=== PATIENT | male | born 1955 | race American Indian/Alaskan Native ===

== ENCOUNTER 2017-12-13 22:46 | Emergency (ER) | payer OTHER ==
[~2017-12-13] VITALS: Ht 167.6 cm; Wt 68.2 kg
[2017-12-13 22:51] VITALS: BP 154/99
== END 2017-12-14 02:00 | disposition left against medical advice (07) ==
LOC: EMS 22:47
DX: M25.561 Pain in right knee (principal); F17.210 Nicotine dependence, cigarettes, uncomplicated; F19.90 Other psychoactive substance use, unspecified, uncomplicated; Z53.21 Procedure and treatment not carried out due to patient leaving prior to being seen by health care provider

== ENCOUNTER 2022-07-11 07:11 | Inpatient (IN) | payer OTHER ==
[~2022-07-11] VITALS: Ht 167.6 cm; Wt 75.0 kg
[2022-07-11 08:04] LABS: EOSINOPHILS % (AUTO) 6.4 % (1.0-6.0); HEMATOCRIT 46.8 % (41-53); HEMOGLOBIN 15.1 g/dL (13.5-17.5); LYMPHOCYTES % (AUTO) 16.4 % (22.0-44.0); MEAN CORPUSCULAR HEMOGLOBIN 31.7 pg (26.0-34.0); MEAN CORPUSCULAR HGB CONC 32.2 G/dL (31.0-37.0); MEAN CORPUSCULAR VOLUME 98 fL (80-100); MONOCYTES # (AUTO) 0.4 K/uL (0.1-1.0); MONOCYTES % (AUTO) 5.8 % (2.0-9.0); NEUTROPHILS # (AUTO) 4.3 K/uL (1.8-7.7); NEUTROPHILS % (AUTO) 70.4 % (40.0-70.0); PLATELET COUNT (AUTO) 171 K/uL (150-450); RED BLOOD CELL COUNT(AUTO) 4.76 MIL/uL (4.50-5.90); RED CELL DISTRIBUTION WIDTH 14.7 % (11.5-14.5)
[2022-07-11 08:24] LABS: CALCIUM, TOTAL 8.6 mg/dL (8.8-10.5); CREATININE 1.33 mg/dL (0.60-1.30); POTASSIUM 4.5 mmol/L (3.5-5.1)
[2022-07-11] MEDS ORDERED: ASPIRIN 81 MG CHEWABLE TABLET PO ONE (08:30)
[2022-07-11 08:50] LABS: ALBUMIN 3.7 g/dL (3.4-5.0); BILIRUBIN,TOTAL 0.8 mg/dL (0.1-1.0); TOTAL PROTEIN, SERUM 7.1 g/dL (6.4-8.2)
[2022-07-11] MEDS ORDERED: CIPROFLOXACIN HCL 0.3% 2.5 ML OPHTHALMIC SOLUTION OU ONE (09:00)
[2022-07-11 09:02] LABS: COVID AG,FIA SOURCE NASOPHARYNGEAL
[2022-07-11] MEDS ORDERED: ONDANSETRON HCL 4 MG/2 ML VIAL IVP PRN ×2 (09:15→16:00)
[2022-07-11] MEDS ORDERED: ACETAMINOPHEN 325 MG TABLET PO PRN ×2 (09:15→16:00)
[2022-07-11] MEDS ORDERED: 0.9% SODIUM CHLORIDE 10 ML SYRINGE IVP PRN (09:15)
[2022-07-11] MEDS ORDERED: FUROSEMIDE 20 MG/2 ML VIAL IVP ONE (09:15)
[2022-07-11 09:18] LABS: APPEARANCE,URINE CLEAR (CLEAR); BILIRUBIN,URINE NEGATIVE (NEGATIVE); GLUCOSE, URINE (UA) NEGATIVE (NEGATIVE); KETONES,URINE NEGATIVE (NEGATIVE); LEUKOCYTE ESTERASE ,URINE NEGATIVE (NEGATIVE); NITRATE,URINE NEGATIVE (NEGATIVE); OCCULT BLOOD,URINE NEGATIVE (NEGATIVE); PH,URINE 5.5 (5.0-8.0); PROTEIN,URINE 30-70 mg/dL (NEGATIVE); SPECIFIC GRAVITIY, URINE 1.021 (1.003-1.030); UROBILINOGEN,URINE <=1.0 mg/dL (<=1.0)
[2022-07-11 09:49] LABS: INFLUENZA TYPE A NEGATIVE FOR TYPE A (NEGATIVE); INFLUENZA TYPE B NEGATIVE FOR TYPE B (NEGATIVE)
[2022-07-11 14:33] LABS: AMPHET/METH SCREEN,URINE POSITIVE (NEGATIVE); BARBITURATE SCREEN, URINE NEGATIVE (NEGATIVE); BENZODIAZEPINES SCREEN,URINE NEGATIVE (NEGATIVE); CANNABINOID SCREEN,URINE NEGATIVE (NEGATIVE); COCAINE SCREEN,URINE NEGATIVE (NEGATIVE); METHADONE SCREEN, URINE NEGATIVE (NEGATIVE); OPIATE SCREEN,URINE NEGATIVE (NEGATIVE)
[2022-07-11 14:37] LABS: PHENCYCLIDINE SCREEN,URINE NEGATIVE (NEGATIVE)
[2022-07-11] MEDS ORDERED: ZOLPIDEM TARTRATE 5 MG TABLET PO PRN (16:00)
[2022-07-11] MEDS ORDERED: HYDROCODONE/ACETAMINOPHEN 5-325 MG TABLET PO PRN (16:00)
[2022-07-11] MEDS ORDERED: MORPHINE SULFATE 2 MG/ML SYRINGE IVP PRN (16:00)
[2022-07-11] MEDS ORDERED: BISACODYL 10 MG RECTAL RECTAL SUPPOSITORY PR PRN (16:00)
[2022-07-11] MEDS ORDERED: MAGNESIUM HYDROXIDE SUSPENSION 30 ML UDCUP PO PRN (16:00)
[2022-07-11] MEDS: HEPARIN SODIUM,PORCINE 5,000 UNITS/ML VIAL SQ SCH ×2 (16:08→23:48)
[2022-07-11] MEDS: DOCUSATE SODIUM 100 MG CAPSULE PO SCH (21:01)
[2022-07-11] MEDS: CARVEDILOL 3.125 MG TABLET PO SCH (21:02)
[2022-07-11] MEDS: FUROSEMIDE 20 MG/2 ML VIAL IVP SCH (21:09)
[2022-07-12 05:47] LABS: BASOPHILS % (AUTO) 0.7 % (0.0-2.0); EOSINOPHILS % (AUTO) 5.9 % (1.0-6.0); HEMATOCRIT 46.6 % (41-53); HEMOGLOBIN 15.3 g/dL (13.5-17.5); LYMPHOCYTES # (AUTO) 1.1 K/uL (1.0-4.8); LYMPHOCYTES % (AUTO) 16.7 % (22.0-44.0); MEAN CORPUSCULAR HEMOGLOBIN 31.5 pg (26.0-34.0); MEAN CORPUSCULAR HGB CONC 32.8 G/dL (31.0-37.0); MEAN CORPUSCULAR VOLUME 96 fL (80-100); MONOCYTES # (AUTO) 0.5 K/uL (0.1-1.0); MONOCYTES % (AUTO) 8.3 % (2.0-9.0); NEUTROPHILS # (AUTO) 4.4 K/uL (1.8-7.7); NEUTROPHILS % (AUTO) 68.4 % (40.0-70.0); PLATELET COUNT (AUTO) 173 K/uL (150-450); RED BLOOD CELL COUNT(AUTO) 4.85 MIL/uL (4.50-5.90); RED CELL DISTRIBUTION WIDTH 14.6 % (11.5-14.5)
[2022-07-12 05:49] LABS: CREATININE 1.34 mg/dL (0.60-1.30); POTASSIUM 3.7 mmol/L (3.5-5.1)
[2022-07-12 05:50] LABS: CALCIUM, TOTAL 9.2 mg/dL (8.8-10.5)
[2022-07-12] MEDS: FUROSEMIDE 20 MG/2 ML VIAL IVP SCH ×2 (07:59→20:17)
[2022-07-12] MEDS: HEPARIN SODIUM,PORCINE 5,000 UNITS/ML VIAL SQ SCH ×2 (07:59→15:45)
[2022-07-12] MEDS: DOCUSATE SODIUM 100 MG CAPSULE PO SCH ×2 (07:59→20:19)
[2022-07-12] MEDS: PANTOPRAZOLE SODIUM 40 MG DR TABLET PO SCH (07:59)
[2022-07-12] MEDS: CARVEDILOL 3.125 MG TABLET PO SCH ×2 (07:59→20:21)
[2022-07-12] MEDS: LISINOPRIL 5 MG TABLET PO SCH (08:15)
[2022-07-12 10:50] VITALS: BP 122/76
[2022-07-12] MEDS ORDERED: PERFLUTREN PROTEIN-A MICROSPHERES 0.22 MG/ML 3 ML VIAL IVP ONE (12:00)
[2022-07-12] MEDS ORDERED: PNEUMOCOCCAL VACCINE POLYVALENT 0.5 ML VIAL [PPSV23] IM. ONE (12:45)
[2022-07-12] MEDS: ASPIRIN 81 MG DR TABLET PO SCH (15:44)
[2022-07-12 16:05] VITALS: BP 113/72
[2022-07-12 20:21] VITALS: BP 101/62
[2022-07-12 23:50] VITALS: BP 98/62
[2022-07-13] MEDS: HEPARIN SODIUM,PORCINE 5,000 UNITS/ML VIAL SQ SCH ×3 (00:43→15:35)
[2022-07-13 04:00] VITALS: BP 109/68
[2022-07-13 06:22] LABS: BASOPHILS % (AUTO) 0.9 % (0.0-2.0); EOSINOPHILS % (AUTO) 4.9 % (1.0-6.0); HEMATOCRIT 47.6 % (41-53); HEMOGLOBIN 15.6 g/dL (13.5-17.5); LYMPHOCYTES % (AUTO) 15.4 % (22.0-44.0); MEAN CORPUSCULAR HEMOGLOBIN 31.9 pg (26.0-34.0); MEAN CORPUSCULAR HGB CONC 32.8 G/dL (31.0-37.0); MEAN CORPUSCULAR VOLUME 97 fL (80-100); MONOCYTES # (AUTO) 0.6 K/uL (0.1-1.0); MONOCYTES % (AUTO) 9.2 % (2.0-9.0); NEUTROPHILS # (AUTO) 4.3 K/uL (1.8-7.7); NEUTROPHILS % (AUTO) 69.6 % (40.0-70.0); PLATELET COUNT (AUTO) 167 K/uL (150-450); RED BLOOD CELL COUNT(AUTO) 4.89 MIL/uL (4.50-5.90); RED CELL DISTRIBUTION WIDTH 14.3 % (11.5-14.5)
[2022-07-13 06:32] LABS: CALCIUM, TOTAL 9.1 mg/dL (8.8-10.5); CREATININE 1.59 mg/dL (0.60-1.30); POTASSIUM 3.8 mmol/L (3.5-5.1)
[2022-07-13 08:17] VITALS: BP 117/76
[2022-07-13] MEDS: LISINOPRIL 5 MG TABLET PO SCH (08:20)
[2022-07-13] MEDS: FUROSEMIDE 20 MG/2 ML VIAL IVP SCH (08:20)
[2022-07-13] MEDS: ASPIRIN 81 MG DR TABLET PO SCH (08:21)
[2022-07-13] MEDS: PANTOPRAZOLE SODIUM 40 MG DR TABLET PO SCH (08:21)
[2022-07-13] MEDS: DOCUSATE SODIUM 100 MG CAPSULE PO SCH (08:21)
[2022-07-13] MEDS: CARVEDILOL 3.125 MG TABLET PO SCH (08:21)
[2022-07-13] MEDS ORDERED: ATORVASTATIN CALCIUM 40 MG TABLET PO SCH (09:00)
[2022-07-13 11:05] VITALS: BP 118/62
[2022-07-13] MEDS ORDERED: ASPI-1444 PO (14:39)
[2022-07-13] MEDS ORDERED: ATOR40TA71 PO (14:39)
[2022-07-13] MEDS ORDERED: LISI-892 PO (14:39)
[2022-07-13] MEDS ORDERED: CARV3 PO (14:39)
[2022-07-13] MEDS ORDERED: FURO20 PO (14:39)
[2022-07-13 15:15] VITALS: BP 126/72
[2022-07-13] MEDS ORDERED: FUROSEMIDE 20 MG TABLET PO SCH (21:00)
== END 2022-07-14 05:29 | disposition home or self-care (01) | DRG 812 ==
LOC: EMS 07:12 → 5N 07-12 08:46
PROVIDERS: ADMIT Internal Medicine; ATTEND Internal Medicine
DX: T43.621A Poisoning by amphetamines, accidental (unintentional), initial encounter (principal); J96.01 Acute respiratory failure with hypoxia; N17.0 Acute kidney failure with tubular necrosis; I13.0 Hypertensive heart and chronic kidney disease with heart failure and stage 1 through stage 4 chronic kidney disease, or unspecified chronic kidney disease; I50.43 Acute on chronic combined systolic (congestive) and diastolic (congestive) heart failure; F15.10 Other stimulant abuse, uncomplicated; F17.200 Nicotine dependence, unspecified, uncomplicated; I42.9 Cardiomyopathy, unspecified; N18.9 Chronic kidney disease, unspecified; Z20.822 Contact with and (suspected) exposure to COVID-19; Z79.899 Other long term (current) drug therapy; Z79.82 Long term (current) use of aspirin
CPT/HCPCS: 74022; 80048; 80053; 82550; 83690; 83880; 84484; 85025; 87804; 93005; 93306; 99285; C8924; J1644; J1940; Q9967

== ENCOUNTER 2022-08-07 13:48 | Emergency (ER) | payer OTHER ==
[~2022-08-07] VITALS: Ht 167.6 cm; Wt 72.7 kg
[~2022-08-07 13:48] MED LIST: ASPI-1444 PO; ATOR40TA71 PO; CARV3 PO; FURO20 PO; LISI-892 PO
[2022-08-07] MEDS ORDERED: COLC0.6T73 PO (14:29)
[2022-08-07] MEDS ORDERED: CEPH-558 PO (14:29)
[2022-08-07] MEDS ORDERED: INDO-16 PO (14:29)
[2022-08-07 14:50] VITALS: BP 127/73
== END 2022-08-07 15:09 | disposition home or self-care (01) ==
LOC: EMS 14:05
DX: L03.115 Cellulitis of right lower limb (principal); F15.10 Other stimulant abuse, uncomplicated; F17.210 Nicotine dependence, cigarettes, uncomplicated; Z82.61 Family history of arthritis
CPT/HCPCS: 99283; Z7502

== ENCOUNTER 2022-09-05 05:13 | Emergency (ER) | payer OTHER ==
[~2022-09-05] VITALS: Ht 167.6 cm; Wt 77.3 kg
[~2022-09-05 05:13] MED LIST changes: +CEPH-558 PO; +COLC0.6T73 PO; +INDO-16 PO
[2022-09-05 05:20] VITALS: BP 141/76
[2022-09-05] MEDS ORDERED: MethylPREDNISolone SOD SUCC 125 MG/2 ML VIAL IM ONE (06:45)
[2022-09-05] MEDS ORDERED: COLC0.6T68 PO (06:56)
== END 2022-09-05 07:25 | disposition home or self-care (01) ==
LOC: EMS 05:14
DX: M10.9 Gout, unspecified (principal); I11.0 Hypertensive heart disease with heart failure; I50.9 Heart failure, unspecified; E78.00 Pure hypercholesterolemia, unspecified; F17.210 Nicotine dependence, cigarettes, uncomplicated; F15.90 Other stimulant use, unspecified, uncomplicated
CPT/HCPCS: 99283; 96372; J2930

== ENCOUNTER 2023-03-16 07:52 | Emergency (ER) | payer OTHER ==
[~2023-03-16] VITALS: Ht 170.2 cm; Wt 77.3 kg
[~2023-03-16 07:52] MED LIST changes: -CEPH-558 PO; +COLC0.6T68 PO
[2023-03-16 08:46] LABS: COVID AG,FIA SOURCE NASAL SWAB
[2023-03-16 09:22] LABS: INFLUENZA TYPE A NEGATIVE FOR TYPE A (NEGATIVE); INFLUENZA TYPE B NEGATIVE FOR TYPE B (NEGATIVE)
[2023-03-16] MEDS ORDERED: FUROSEMIDE 40 MG/4 ML VIAL IVP ONE (09:30)
[2023-03-16 09:53] LABS: BASOPHILS % (AUTO) 1.1 % (0.0-2.0); EOSINOPHILS % (AUTO) 7.2 % (1.0-6.0); HEMATOCRIT 47.8 % (41-53); HEMOGLOBIN 15.7 g/dL (13.5-17.5); LYMPHOCYTES # (AUTO) 1.3 K/uL (1.0-4.8); LYMPHOCYTES % (AUTO) 22.1 % (22.0-44.0); MEAN CORPUSCULAR HGB CONC 32.8 G/dL (31.0-37.0); MEAN CORPUSCULAR VOLUME 94 fL (80-100); MONOCYTES # (AUTO) 0.6 K/uL (0.1-1.0); MONOCYTES % (AUTO) 10.4 % (2.0-9.0); NEUTROPHILS # (AUTO) 3.5 K/uL (1.8-7.7); NEUTROPHILS % (AUTO) 59.2 % (40.0-70.0); PLATELET COUNT (AUTO) 177 K/uL (150-450); RED BLOOD CELL COUNT(AUTO) 5.06 MIL/uL (4.50-5.90); RED CELL DISTRIBUTION WIDTH 13.9 % (11.5-14.5)
[2023-03-16 10:03] LABS: CALCIUM, TOTAL 9.3 mg/dL (8.8-10.5); CREATININE 1.65 mg/dL (0.60-1.30); POTASSIUM 4.4 mmol/L (3.5-5.1)
[2023-03-16 10:08] LABS: ALBUMIN 3.9 g/dL (3.4-5.0); BILIRUBIN,TOTAL 0.9 mg/dL (0.1-1.0); TOTAL PROTEIN, SERUM 8.6 g/dL (6.4-8.2)
[2023-03-16 12:30] VITALS: BP 112/75
[2023-03-16] MEDS ORDERED: FURO40 PO (12:54)
[2023-03-16] MEDS ORDERED: AMOX500C2 PO (12:55)
[2023-03-16] MEDS ORDERED: ALBUTEROL SULFATE HFA 90 MCG/PUFF 8 GM INHALER IH ONE (13:00)
== END 2023-03-16 13:28 | disposition home or self-care (01) ==
LOC: EMS 07:58
DX: R05.9 Cough, unspecified (principal); J32.9 Chronic sinusitis, unspecified; I11.0 Hypertensive heart disease with heart failure; I50.9 Heart failure, unspecified; E78.00 Pure hypercholesterolemia, unspecified; F15.90 Other stimulant use, unspecified, uncomplicated; Z20.822 Contact with and (suspected) exposure to COVID-19
CPT/HCPCS: 99284; 96374; 71045; 87426; 80053; 83880; 85025; 87804; 36415; 94640; J1940; J3535; 26418

== ENCOUNTER 2023-04-30 12:16 | Emergency (ER) | payer OTHER ==
[~2023-04-30] VITALS: Ht 167.6 cm; Wt 77.3 kg
[~2023-04-30 12:16] MED LIST changes: +AMOX500C2 PO; -COLC0.6T68 PO; -FURO20 PO; +FURO40 PO; -INDO-16 PO
[2023-04-30] MEDS ORDERED: HYDROCODONE/ACETAMINOPHEN 5-325 MG TABLET PO ONE (12:30)
[2023-04-30 14:51] VITALS: BP 131/84; PULSE 91; RESP 16; TEMP 99
[2023-04-30] MEDS ORDERED: TRAM-559 PO (14:52)
== END 2023-04-30 15:22 | disposition home or self-care (01) ==
LOC: EMS 12:17
DX: S63.501A Unspecified sprain of right wrist, initial encounter (principal); S60.211A Contusion of right wrist, initial encounter; I11.0 Hypertensive heart disease with heart failure; I50.9 Heart failure, unspecified; E78.00 Pure hypercholesterolemia, unspecified; F15.90 Other stimulant use, unspecified, uncomplicated; W23.0XXA Caught, crushed, jammed, or pinched between moving objects, initial encounter; Y93.89 Activity, other specified; Y92.89 Other specified places as the place of occurrence of the external cause; Y99.8 Other external cause status
CPT/HCPCS: 99284; 73110-TC; 73130-TC; Z7502; Z7610

== ENCOUNTER 2023-11-17 01:45 | Emergency (ER) | payer OTHER ==
[~2023-11-17] VITALS: Ht 167.6 cm; Wt 79.5 kg
[~2023-11-17 01:45] MED LIST changes: -AMOX500C2 PO; +TRAM-559 PO
[2023-11-17 01:54] VITALS: TEMP 98.2
[2023-11-17 02:00] VITALS: BP 145/87; PULSE 81; RESP 17
[2023-11-17] MEDS ORDERED: HYDROCODONE/ACETAMINOPHEN 5-325 MG TABLET PO ONE (02:30)
[2023-11-17] MEDS ORDERED: MethylPREDNISolone SOD SUCC 125 MG/2 ML VIAL IM ONE (02:30)
[2023-11-17] MEDS ORDERED: COLCHICINE 0.6 MG TABLET PO ONE (02:30)
[2023-11-17 03:23] LABS: CALCIUM, TOTAL 8.9 mg/dL (8.8-10.5); CREATININE 1.25 mg/dL (0.60-1.30); POTASSIUM 4.7 mmol/L (3.5-5.1)
[2023-11-17 03:26] LABS: URIC ACID 6.8 mg/dL (2.6-7.2)
[2023-11-17] MEDS ORDERED: IBUP-1554 PO (03:32)
[2023-11-17] MEDS ORDERED: COLC0.6T73 PO (03:32)
[2023-11-17] MEDS ORDERED: HYDR-4723 PO (03:32)
== END 2023-11-17 03:39 | disposition home or self-care (01) ==
LOC: EMS 01:46
DX: M10.9 Gout, unspecified (principal); E78.00 Pure hypercholesterolemia, unspecified; F15.90 Other stimulant use, unspecified, uncomplicated; I11.0 Hypertensive heart disease with heart failure; I50.9 Heart failure, unspecified
CPT/HCPCS: 99283; 80048; 84550; 36415; 96372; J2930

== ENCOUNTER 2024-06-06 13:46 | Emergency (ER) | payer OTHER ==
[~2024-06-06] VITALS: Ht 167.6 cm; Wt 77.3 kg
[~2024-06-06 13:46] MED LIST changes: +COLC-3 PO; -COLC0.6T73 PO; +HYDR-4062 PO; +IBUP-1554 PO; -TRAM-559 PO; +TRAM50TA5 PO
[2024-06-06 13:53] VITALS: BP 147/84; PULSE 88; RESP 20; TEMP 98.7
[2024-06-06] MEDS ORDERED: FURO40 PO (14:44)
[2024-06-06] MEDS: KETOROLAC TROMETHAMINE 30 MG/ML VIAL IM ONE (14:50)
[2024-06-06] MEDS: PredniSONE 20 MG TABLET PO ONE (14:50)
[2024-06-06] MEDS ORDERED: IBUP-1492 PO (14:55)
== END 2024-06-06 15:02 | disposition home or self-care (01) ==
LOC: EMS 13:46
DX: M10.022 Idiopathic gout, left elbow (principal); E78.00 Pure hypercholesterolemia, unspecified; I10 Essential (primary) hypertension; F15.90 Other stimulant use, unspecified, uncomplicated
CPT/HCPCS: 99283; 96372; J1885; J7512